=== PATIENT | male | born 1970 | race Caucasian/White ===

== ENCOUNTER 2019-05-19 17:09 | Emergency (ER) | payer SELFPAY ==
[~2019-05-19] VITALS: Ht 177.8 cm; Wt 99.8 kg
[~2019-05-19 17:09] MED LIST: ALPR.5T; ASP325T; CLPD75T; ENLP10T; EZET10TA5; MTP50T; OMG1KC; SIMV40TA2
[2019-05-19] MEDS ORDERED: fentaNYL INJECTION 100 MCG/2 ML AMP IVP STA (17:24)
[2019-05-19] MEDS ORDERED: ONDANSETRON 4 MG/2 ML (SDV) Z0FRAN IVP ONE (17:30)
[2019-05-19 17:40] LABS: BASOPHILS % (AUTO) 0 % (0-10); EOSINOPHILS # (AUTO) 0.2 10^3/uL (0.0-0.3); EOSINOPHILS % (AUTO) 2 % (0-10); HEMATOCRIT 40 % (40-54); HEMOGLOBIN 13.6 G/DL (13.3-17.7); LYMPHOCYTES # (AUTO) 2.6 X 10^3 (1.0-4.0); LYMPHOCYTES % (AUTO) 30 % (12-44); MEAN CORPUSCULAR HEMOGLOBIN 32 PG (25-34); MEAN CORPUSCULAR HGB CONC 34 G/DL (32-36); MEAN CORPUSCULAR VOLUME 93 FL (80-99); MEAN PLATELET VOLUME 11.2 FL (7.4-10.4); MONOCYTES # (AUTO) 0.8 X 10^3 (0.0-1.0); MONOCYTES % (AUTO) 9 % (0-12); NEUTROPHILS % (AUTO) 59 % (42-75); PLATELET COUNT 253 10^3/uL (130-400); RED CELL DISTRIBUTION WIDTH 12.9 % (10.0-14.5); WHITE BLOOD COUNT 8.6 10^3/uL (4.3-11.0)
--- NOTE | 2019-05-19 17:40 | NUR ---
TO CT PER CART C COLLAR IN PLACE.
--- NOTE | 2019-05-19 17:51 | NUR ---
PATIENT REPORTS THAT HE IS SUPPOSE TO BE ON MEDS,BUT HAS NOT TAKEN ANY FOR A YEAR.
[2019-05-19 17:56] LABS: ALANINE AMINOTRANSFERASE 25 U/L (0-55); ALKALINE PHOSPHATASE 66 U/L (40-136); BILIRUBIN,TOTAL 0.2 MG/DL (0.1-1.0); BUN/CREATININE RATIO 12; CARBON DIOXIDE 27 MMOL/L (21-32); CHLORIDE 105 MMOL/L (98-107); CREATININE SERUM 0.78 MG/DL (0.60-1.30); GFR ESTIMATED > 60; GLUCOSE 104 MG/DL (70-105); SODIUM 140 MMOL/L (135-145); TOTAL PROTEIN 7.1 GM/DL (6.4-8.2)
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
--- NOTE | 2019-05-19 18:12 | NUR ---
AMB TO BATHROOM
[2019-05-19 18:36] LABS: BILIRUBIN,URINE NEGATIVE (NEGATIVE); CLARITY,URINE CLEAR; COLOR,URINE YELLOW; GLUCOSE, URINE (UA) NEGATIVE (NEGATIVE); KETONES,URINE NEGATIVE (NEGATIVE); LEUKOCYTE ESTERASE ,URINE 1+ (NEGATIVE); NITRITE,URINE NEGATIVE (NEGATIVE); PH,URINE 5 (5-9); PROTEIN,URINE 1+ (NEGATIVE); UROBILINOGEN,URINE NORMAL (NORMAL)
[2019-05-19 18:37] LABS: BACTERIA,URINE FEW /HPF; RBC,URINE >100 /HPF; WBC,URINE 0-2 /HPF
[2019-05-19] MEDS ORDERED: NS IV 1000 ML 1,000 ML IV SCH (18:42)
[2019-05-19] MEDS ORDERED: IOHEXOL 350 MG/ML 100 ML (OMNIPAQUE 350) VIAL IV ONE (19:00)
[2019-05-19] MEDS ORDERED: NS 100 ML (IVPB) BAG IV ONE (19:00)
[2019-05-19] MEDS ORDERED: HOLD METFORMIN - RECEIVED CONTRAST 20 ML VIAL IV SCH (19:00)
[2019-05-19] MEDS ORDERED: CATHETER FLUSH 10 ML SYR IV PRN (19:00)
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
[2019-05-19] MEDS ORDERED: CYCL10TA9 PO (19:58)
[2019-05-19] MEDS ORDERED: ORPHENADRINE 60 MG/2 ML (NORFLEX) AMP IV ONE (20:00)
[2019-05-19 20:07] VITALS: BP 156/99
== END 2019-05-19 20:08 | disposition home or self-care (01) ==
LOC: EDUNIT# 17:09 → ER 17:11
DX: S00.83XA Contusion of other part of head, initial encounter (principal); S80.811A Abrasion, right lower leg, initial encounter; R31.9 Hematuria, unspecified; I10 Essential (primary) hypertension; E78.00 Pure hypercholesterolemia, unspecified; F17.210 Nicotine dependence, cigarettes, uncomplicated; R40.2142 Coma scale, eyes open, spontaneous, at arrival to emergency department; R40.2252 Coma scale, best verbal response, oriented, at arrival to emergency department; R40.2362 Coma scale, best motor response, obeys commands, at arrival to emergency department; Z95.1 Presence of aortocoronary bypass graft; V53.5XXA Driver of pick-up truck or van injured in collision with car, pick-up truck or van in traffic accident, initial encounter
CPT/HCPCS: 36415; 70450; 71045; 72125; 74177; 80053; 81000; 85025; 87088

== ENCOUNTER 2019-06-01 11:01 | Emergency (ER) | payer OTHER ==
[~2019-06-01] VITALS: Ht 177.8 cm; Wt 100.0 kg
[~2019-06-01 11:01] MED LIST changes: +CYCL10TA9 PO
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
[2019-06-01] MEDS ORDERED: KETOROLAC 30 MG/ML VIAL IM ONE (11:15)
[2019-06-01] MEDS ORDERED: ORPHENADRINE 60 MG/2 ML (NORFLEX) AMP IM ONE (11:15)
[2019-06-01] MEDS ORDERED: HYDROcodone/APAP 5 MG/325 MG (LORTAB) TAB PO ONE (11:15)
--- NOTE | 2019-06-01 11:37 | Diagnostic Imaging Report ---
Indication: Back injury with continued back pain. Time of exam 11:21 AM 3 views of the lumbar spine were obtained. Curvature and alignment is normal. Vertebral body heights are well maintained. No acute compression fracture is seen. There is mild degenerative disc disease at L5-S1 level. There is mild disc space narrowing as well as vacuum disc phenomena. Impression: Lower lumbar degenerative disc disease. No acute bony abnormality is detected. Dictated by: Dictated on workstation # [id number]
[2019-06-01] MEDS ORDERED: HYDR-4226 PO (11:54)
[2019-06-01] MEDS ORDERED: PRD20T PO (11:54)
[2019-06-01 12:00] VITALS: BP 134/100
== END 2019-06-01 12:00 | disposition home or self-care (01) ==
LOC: EDUNIT# 11:01 → ER 11:02
DX: M54.16 Radiculopathy, lumbar region (principal); I10 Essential (primary) hypertension; E78.00 Pure hypercholesterolemia, unspecified; Z95.1 Presence of aortocoronary bypass graft
CPT/HCPCS: 72100; 96372

== ENCOUNTER 2020-06-17 03:34 | Inpatient (IN) | payer SELFPAY ==
[~2020-06-17] VITALS: Ht 175 cm; Wt 110.0 kg
[2020-06-17] VITALS (13 sets, daily range): BP systolic 92–143; BP diastolic 42–102
[~2020-06-17 03:34] MED LIST changes: +HYDR-4226 PO; +PRD20T PO
[2020-06-17] MEDS ORDERED: NS IV 1000 ML 1,000 ML ONE ×2 (04:02→05:19)
[2020-06-17] MEDS ORDERED: NS IV 1000 ML 1,000 ML IV SCH ×3 (04:04→06:14)
[2020-06-17] MEDS ORDERED: meTOproloL SUCCINATE 50 MG (TOPROL XL) TAB PO SCH ×2 (04:15→09:00)
[2020-06-17] MEDS ORDERED: meTOprolol 5 MG/5 ML (LOPRESSOR) VIAL IV ONE (04:15)
[2020-06-17] MEDS ORDERED: TETANUS,DIPTH,PERTUSS P/F (BOOSTRIX) 0.5 ML VIAL IM ONE (04:15)
[2020-06-17] MEDS ORDERED: ASPIRIN 81 MG CHEW (CHILDREN'S ASA) PO ONE (04:15)
[2020-06-17 04:16] LABS: BASOPHILS # (AUTO) 0.1 10^3/uL (0.0-0.1); BASOPHILS % (AUTO) 1 % (0-10); EOSINOPHILS # (AUTO) 0.2 10^3/uL (0.0-0.3); EOSINOPHILS % (AUTO) 1 % (0-10); HEMATOCRIT 42 % (40-54); HEMOGLOBIN 14.5 g/dL (13.3-17.7); LYMPHOCYTES # (AUTO) 2.3 10^3/uL (1.0-4.0); LYMPHOCYTES % (AUTO) 19 % (12-44); MEAN CORPUSCULAR HEMOGLOBIN 32 pg (25-34); MEAN CORPUSCULAR HGB CONC 34 g/dL (32-36); MEAN CORPUSCULAR VOLUME 92 fL (80-99); MEAN PLATELET VOLUME 11.5 fL (9.0-12.2); MONOCYTES % (AUTO) 8 % (0-12); NEUTROPHILS # (AUTO) 8.6 10^3/uL (1.8-7.8); NEUTROPHILS % (AUTO) 70 % (42-75); PLATELET COUNT 328 10^3/uL (130-400); WHITE BLOOD COUNT 12.2 10^3/uL (4.3-11.0)
[2020-06-17 04:20] LABS: ALBUMIN 4.5 GM/DL (3.2-4.5); CHLORIDE 101 MMOL/L (98-107); POTASSIUM 4.1 MMOL/L (3.6-5.0); SODIUM 136 MMOL/L (135-145)
[2020-06-17 04:21] LABS: CALCIUM 9.2 MG/DL (8.5-10.1)
[2020-06-17 04:22] LABS: GLUCOSE 144 MG/DL (70-105)
[2020-06-17 04:23] LABS: CARBON DIOXIDE 22 MMOL/L (21-32)
[2020-06-17 04:24] LABS: BILIRUBIN,TOTAL 0.4 MG/DL (0.1-1.0)
[2020-06-17 04:26] LABS: ALKALINE PHOSPHATASE 76 U/L (40-136); CREATININE SERUM 1.06 MG/DL (0.60-1.30); GFR ESTIMATED > 60
[2020-06-17 04:27] LABS: BUN/CREATININE RATIO 18
[2020-06-17 04:29] LABS: ALANINE AMINOTRANSFERASE 36 U/L (0-55); MAGNESIUM 1.9 MG/DL (1.6-2.4)
--- NOTE | 2020-06-17 04:33 | ED Chest Pain ---
General Chief Complaint: Chest Pain Stated Complaint: CP,FALL,CUT ON HEAD Nursing Triage Note: C/O FALL APPROX. 0300 1CM LACERATION ABOVE LEFT EYE. CHEST PAIN. Nursing Sepsis Screen: No Definite Risk Source: patient Exam Limitations: no limitations History of Present Illness Date Seen by Provider: Jun 17, 2020 Time Seen by Provider: 03:39 Initial Comments This 49-year-old man presents to the emergency room with complaints of chest pain and shortness of breath 1 week and a fall this evening resulting in laceration to his forehead. He does not recall the fall or how it happened. He believes he was walking out to his truck at the time. He did ice it he recently alcohol use but he has used methamphetamines in the last couple of days. He takes a full aspirin daily. He is warm to the touch and appears flushed but is afebrile when measured with a thermometer. He has history of CABG. His CABG was in 2005. He had a cardiac catheter here reviewed 2009 showing patent grafts. He has not followed with a customer relationship specialist since being incarcerated. He w as released in 2016. He denies any known exposures to COVID-19. He is tachycardic and EKG demonstrates questionable STEMI. Allergies and Home Medications Allergies Coded Allergies: No Known Drug Allergies (Verified Allergy, Unknown, 03/23/08) Home Medications Cyclobenzaprine HCl 10 Mg Tablet, 10 MG PO Q8H PRN for SPASMS Prescribed by: TOYIN SPANN on 05/19/191957 Hydrocodone/Acetaminophen 1 Each Tablet, 1 TAB PO Q4-6HR Prescribed by: EBONY BARNARD on 06/01/19 115 Prednisone 20 Mg Tab, 40 MG PO DAILY Prescribed by: EBONY BARNARD on 06/01/19 1154 Patient Home Medication List Home Medication List Reviewed: Yes Review of Systems Review of Systems Constitutional: see HPI EENTM: No Symptoms Reported Respiratory: No Symptoms Reported Cardiovascular: See HPI Gastrointestinal: No Symptoms Reported Genitourinary: No Symptoms Reported Musculoskeletal: see HPI Skin: see HPI Psychiatric/Neurological: No Symptoms Reported Endocrine: No Symptoms Reported Hematologic/Lymphatic: No Symptoms Reported Past Lmfhuwh-Hnuult-Ugtrah Hx Past Med/Social Hx: Reviewed Nursing Past Med/Soc Hx Patient Social History Alcohol Use: Denies Use Recreational Drug Use: Yes Drug of Choice: THC, METH Smoking Status: Current Everyday Smoker Type Used: Cigars Recent Foreign Travel: No Contact w/Someone Who Travel: No Recent Infectious Disease Expo: No Recent Hopitalizations: No Immunizations Up To Date Tetanus Booster (TDap): Unknown Past Medical History Surgeries: Yes (BYPASS, KNEE WAS CUT OPEN BY CHAINSAW-RAPAIRED) CABG Respiratory: No Cardiac: Yes Coronary Artery Disease, High Cholesterol, Hypertension Neurological: No Reproductive Disorders: No Genitourinary: No Gastrointestinal: No Musculoskeletal: No Endocrine: No HEENT: No Cancer: No Psychosocial: Yes Integumentary: No Blood Disorders: No Family Medical History No Pertinent Family Hx Physical Exam Vital Signs Vital Signs - First Documented 06/17/20 03:45 Temp 36.1 Pulse 126 Resp 22 B/P (MAP) 119/89 (99) Pulse Ox 96 O2 Delivery Room Air Capillary Refill : Less Than 3 Seconds Height, Weight, BMI Height: 5'10.00" Weight: 220lbs. oz. 99.295160bq; 33.00 BMI Method:Stated General Appearance: No Apparent Distress, WD/WN HEENT: PERRL/EOMI, Pharynx Normal, Other (1 cm laceration on the left forehead. Ecchymosis and swelling in the left periorbital region) Neck: Normal Inspection, Non Tender Respiratory: Chest Non Tender, Lungs Clear, Normal Breath Sounds, No Accessory Muscle Use, Other (tachypnea) Cardiovascular: No Edema, No Murmur, Tachycardia Gastrointestinal: Normal Bowel Sounds, Non Tender, Soft, Other (slight bruise on the right abdomen without significant tenderness) Extremity: Normal Inspection, Non Tender, No Pedal Edema Neurologic/Psychiatric: Alert, Oriented x3, No Motor/Sensory Deficits, 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, pharmacy buyer II-XII Norm as Tested, Other (oriented but seems to have lapse of memory surrounding the fall and head injury) Skin: Normal Color, Warm/Dry, Ecchymosis Progress/Results/Core Measures Results/Orders Lab Results Laboratory Tests Test 06/17/20 04:04 06/17/20 04:08 Range/Units White Blood Count 12.2 H 4.3-11.0 10^3/uL Red Blood Count 4.58 4.30-5.52 10^6/uL Hemoglobin 14.5 13.3-17.7 g/dL Hematocrit 42 40-54 % Mean Corpuscular Volume 92 80-99 fL Mean Corpuscular Hemoglobin 32 25-34 pg Mean Corpuscular Hemoglobin Concent 34 32-36 g/dL Red Cell Distribution Width 12.3 10.0-14.5 % Platelet Count 328 130-400 10^3/uL Mean Platelet Volume 11.5 9.0-12.2 fL Immature Granulocyte % (Auto) 1 % Neutrophils (%) (Auto) 70 42-75 % Lymphocytes (%) (Auto) 19 12-44 % Monocytes (%) (Auto) 8 0-12 % Eosinophils (%) (Auto) 1 0-10 % Basophils (%) (Auto) 1 0-10 % Neutrophils # (Auto) 8.6 H 1.8-7.8 10^3/uL Lymphocytes # (Auto) 2.3 1.0-4.0 10^3/uL Monocytes # (Auto) 1.0 0.0-1.0 10^3/uL Eosinophils # (Auto) 0.2 0.0-0.3 10^3/uL Basophils # (Auto) 0.1 0.0-0.1 10^3/uL Immature Granulocyte # (Auto) 0.1 0.0-0.1 10^3/uL Prothrombin Time 12.9 12.2-14.7 SEC INR Comment 0.9 0.8-1.4 Activated Partial Thromboplast Time 29 24-35 SEC D-Dimer 0.27 0.00-0.49 UG/ML Sodium Level 136 135-145 MMOL/L Potassium Level 4.1 3.6-5.0 MMOL/L Chloride Level 101 98-107 MMOL/L Carbon Dioxide Level 22 21-32 MMOL/L Anion Gap 13 5-14 MMOL/L Blood Urea Nitrogen 19 H 7-18 MG/DL Creatinine 1.06 0.60-1.30 MG/DL Estimat Glomerular Filtration Rate > 60 BUN/Creatinine Ratio 18 Glucose Level 144 H 70-105 MG/DL Calcium Level 9.2 8.5-10.1 MG/DL Corrected Calcium 8.8 8.5-10.1 MG/DL Magnesium Level 1.9 1.6-2.4 MG/DL Total Bilirubin 0.4 0.1-1.0 MG/DL Aspartate Amino Transf (AST/SGOT) 27 5-34 U/L Alanine Aminotransferase (ALT/SGPT) 36 0-55 U/L Alkaline Phosphatase 76 40-136 U/L Lactate Dehydrogenase 225 H 125-220 U/L Myoglobin 67.9 10.0-92.0 NG/ML Troponin I 0.423 *H <0.028 NG/ML C-Reactive Protein High Sensitivity 1.11 H 0.00-0.50 MG/DL Total Protein 8.0 6.4-8.2 GM/DL Albumin 4.5 3.2-4.5 GM/DL Procalcitonin 0.05 <0.10 NG/ML Coronavirus 2019 ([facility]AN) Negative Negative Micro Results Microbiology 06/17/20 Influenza Types A,B Antigen (SABA) - Final, Complete My Orders Orders - BHUMIKA FREIRE MD Cbc With Automated Diff (06/17/20 04:00) Magnesium (06/17/20 04:00) Chest 1 View, Ap/Pa Only (06/17/20 04:00) Ekg Tracing (06/17/20 04:00) Comprehensive Metabolic Panel (06/17/20 04:00) Myoglobin Serum (06/17/20 04:00) Protime With Inr (06/17/20 04:00) Partial Thromboplastin Time (06/17/20 04:00) O2 (06/17/20 04:00) Monitor-Rhythm Ecg Trace Only (06/17/20 04:00) Lipid Panel (06/18/20 06:00) Ed Iv/Invasive Line Start (06/17/20 04:00) Troponin I (06/17/20 04:00) Procalcitonin (Pct) (06/17/20 04:00) Hs C Reactive Protein (06/17/20 04:00) LDH (06/17/20 04:00) Covid 19 Inhouse Test (06/17/20 04:00) Ct Head/Face/Cervical Wo (06/17/20 04:02) Dipht,Pertuss(Acell),Tet Adult (Boostrix (06/17/20 04:15) Influenza A And B Antigens (06/17/20 04:04) Ns Iv 1000 Ml (Sodium Chloride 0.9%) (06/17/20 04:04) Drug Screen Stat (Urine) (06/17/20 04:04) Ns Iv 1000 Ml (Sodium Chloride 0.9%) (06/17/20 04:02) Metoprolol Tartrate Injection (Lopressor (06/17/20 04:15) Aspirin Chewable Tablet (Baby Aspirin Ch (06/17/20 04:15) Metoprolol Succinate (Xl) Tab (Toprol Xl (06/17/20 04:15) Fibrin Degradation Products (06/17/20 04:04) Medications Given in ED Current Medications Medications Dose Ordered Sig/Jordan Route Start Time Stop Time Status Last Admin Dose Admin Aspirin 324 mg ONCE ONCE PO 06/17/20 04:15 06/17/20 04:16 DC 06/17/20 04:15 324 MG Diphtheria/ Tetanus/Acell Pertussis 0.5 ml ONCE ONCE IM 06/17/20 04:15 06/17/20 04:16 DC 06/17/20 04:09 0.5 ML Metoprolol Tartrate 5 mg ONCE ONCE IV 06/17/20 04:15 06/17/20 04:16 DC 06/17/20 04:16 5 MG Vital Signs/I&O 06/17/20 06/17/20 03:45 03:45 Temp 36.1 Pulse 126 Resp 22 B/P (MAP) 119/89 (99) Pulse Ox 96 O2 Delivery Room Air Room Air Blood Pressure Mean: 99 Progress Progress Note : Time: 05:24 Progress Note Patient was diagnosed with NSTEMI. ST elevation was only present in lead 3. Troponin was elevated. Patient was treated with aspirin, Lopressor 5 mg IV, Toprol-XL 50 mg by mouth, and a liter of IV fluid. Rapid COVID screen was negative. Patient had a positive urine drug screen. Boostrix tetanus immunization was administered. Wound on the forehead was not repaired in favor of other priorities such as CT imaging and cardiac angiography. Patient was taken directly to [facility] with Dr. Forrest. Initial ECG Impression Date: Jun 17, 2020 Initial ECG Impression Time: 03:49 Initial ECG Rate: 122 Initial ECG Rhythm: S.Tach Comment Sinus tachycardia with ST elevation in lead 3. ST depression in multiple leads. Diagnostic Imaging Diagonstic Imaging: CT Plain Films/CT/US/NM/MRI: facial bones, c-spine, head Comments CT of the head, cervical spine, and face viewed by me and [facility] report reviewed. No acute fractures or intracranial injuries identified. Diagonstic Imaging: Xray Plain Films/CT/US/NM/MRI: chest Comments Chest x-ray viewed by me. Report not yet available. No acute abnormalities appreciated. Departure Communication (Admissions) Time/Spoke to Admitting Phy: 04:00 Dr. Forrest Impression Primary Impression: Non-ST elevated myocardial infarction Additional Impressions: Polysubstance abuse Fall on same level Qualified Codes: W18.30XA - Fall on same level, unspecified, initial encounter Laceration of forehead Qualified Codes: S01.81XA - Laceration without foreign body of other part of head, initial encounter Disposition: ADMITTED INPATIENT Condition: Stable Admissions Decision to Admit Reason: Admit from ER (General) Decision to Admit/Date: Jun 17, 2020 Time/Decision to Admit Time: 04:00 Departure-Patient Inst. Referrals: NO,LOCAL PHYSICIAN (PCP/Family) Primary Care Physician BHUMIKA FREIRE MD Jun 17, 2020 04:33
[2020-06-17 04:37] LABS: INR 0.9 (0.8-1.4); PROTHROMBIN TIME PATIENT 12.9 SEC (12.2-14.7)
[2020-06-17 04:38] LABS: FIBRIN DEGRADATION PRODUCTS 0.27 UG/ML (0.00-0.49)
[2020-06-17] MEDS ORDERED: LIDOCAINE 1% INJ 20 ML 20 ML VIAL ONE (04:43)
[2020-06-17] MEDS ORDERED: HEParin (CATH LAB) 2,000 ML IV ONE (04:44)
[2020-06-17] MEDS ORDERED: NITRO DRIP 25000 MCG/D5W 250 ML IV ONE (04:44)
[2020-06-17] MEDS ORDERED: MIDAZOLAM 5 MG/5 ML (VERSED) VIAL ONE (04:44)
[2020-06-17] MEDS ORDERED: fentaNYL INJECTION 100 MCG/2 ML AMP ONE ×2 (04:44→09:48)
[2020-06-17 05:20] LABS: AMPHETAMINE SCREEN, URINE POSITIVE (NEGATIVE); BARBITURATE SCREEN URINE NEGATIVE (NEGATIVE); BENZODIAZEPINES SCREEN URINE NEGATIVE (NEGATIVE); CANNABINOID SCREEN, URINE POSITIVE (NEGATIVE); COCAINE SCREEN URINE NEGATIVE (NEGATIVE); METHADONE STAT NEGATIVE (NEGATIVE); METHAMPHETAMINE SCREEN URINE S POSITIVE (NEGATIVE); OPIATE SCREEN URINE NEGATIVE (NEGATIVE); OXYCODONE STAT NEGATIVE (NEGATIVE); PROPOXYPHENE STAT NEGATIVE (NEGATIVE); TRICYCLIC ANTIDEPRESSANTS SCRE NEGATIVE (NEGATIVE)
[2020-06-17] MEDS ORDERED: HEParin 1000 UNIT/ML (10ML VIAL) FOR BOLUS ONE (05:39)
[2020-06-17] MEDS ORDERED: ASPIRIN 81 MG CHEW (CHILDREN'S ASA) ONE (05:40)
[2020-06-17] MEDS ORDERED: CLOPIDOGREL 300 MG (PLAVIX) TABLET PO ONE (05:40)
[2020-06-17] MEDS ORDERED: EPTIFIBATIDE BOLUS 20 ML IV ONE (05:40)
[2020-06-17] MEDS ORDERED: PATIENT MAY USE OWN MEDS, ALL PO SCH (06:15)
--- NOTE | 2020-06-17 06:24 | Diagnostic Imaging Report ---
Clinical indication: Patient status post fall with laceration to forehead. Exam: Axial Head CT without IV contrast with coronal and sagittal reformatted images. Axial Maxillofacial CT scan without IV contrast with sagittal and coronal reformations. Axial CT scan of the cervical spine with sagittal and coronal reformations. Auto Exposure Controls were utilized during the CT exam to meet ALARA standards for radiation dose reduction. Comparison: CT scan of the head and cervical spine without contrast dated 05/19/2019. Findings: Head CT and maxillofacial CT: There is no evidence of acute cerebral infarct, intracranial hemorrhage, or gross mass effect. The brain parenchymal volume appears appropriate for patient's age. There is normal goldberg-white matter distinction. There is no significant midline shift or herniation. There is no evidence of hydrocephalus. The basal cisterns are unremarkable. There is extracranial soft tissue swelling in the left frontal/forehead and left periorbital region. There is no acute skull fracture seen. Likely chronic bony deformity/fractures involving the left nasal bone region. Otherwise, the, extracranial soft tissue, and orbits are unremarkable. There is a small mucous retention cyst involving left maxillary sinus and minimal mucosal thickening involving the ethmoid sinus. The orbits and globes are intact. There is no retrobulbar hematoma. All the extracranial soft tissue swelling is preseptal. Temporal bones show no significant abnormality. Cervical spine: There is limited visualization of the lower cervical spine due to patient body habitus. There is no acute cervical spine fracture or dislocation. There is mild hypertrophic spurs anteriorly involving the cervical spine. There is no significant central spinal canal or neural foramen narrowing. There is no significant paraspinal soft tissue abnormality. Visualized upper lung packer show no acute finding. IMPRESSION: 1: There is no evidence of acute intracranial process or intracranial hemorrhage. 2: There is a small area of extracranial soft tissue swelling involving left frontal region and left periorbital region. There is no acute skull fracture seen. 3: Likely old chronic fractures of the left nasal bone region. 4.: There is no acute cervical spine fracture or dislocation. I agree with [facility] report. Dictated by: Dictated on workstation # [id number]
--- NOTE | 2020-06-17 06:31 | Cardiology History & Physical ---
HPI-Cardiology Cardiology H&P Date of Admission 06/17/20 Primary Care Physician Shereen,Local Physician Attending Physician Kye Forrest MD, MA FACP [facility] Consulting Physician ESE CC: Chest pain, shortness of breath, fall HPI: 49-year-old man presents to the emergency room with complaints of chest pain and shortness of breath 1 week. CP continuous, but worse with exertion and improved with rest, midsternal and L parasternal, nonradiating, associated with shortness of breath, mild to moderately severe in intensity. He took a fall this evening resulting in laceration to his forehead. He does not recall the fall or how it happened. He believes he was walking out to his truck at the time. He has h/o recent alcohol and methamphetamine use, but does not describe it in any more detail. Review of Systems-Cardiology Review of Systems Constitutional: malaise; No weight loss, No weight gain Eyes: No vision change Ears/Nose/Throat: No epistaxis, No nasal drainage, No recent hearing loss Respiratory: As described under HPI Cardiovascular: As described under HPI Gastrointestinal: No diarrhea, No nausea, No vomiting Genitourinary: No dysuria, No hematuria Musculoskeletal: No back pain, No joint pain Skin: No rash, No ulcerations Psychiatric/Neurological: No seizure, No focal weakness, No syncope Hematologic: No bleeding abnormalities VJM-Vcplaq-Hubcha Hx Patient Social History Alcohol Use: Denies Use Recreational Drug Use: Yes Drug of Choice: THC, METH Smoking Status: Current Everyday Smoker Type Used: Cigars, Cigarettes Recent Foreign Travel: No Recent Infectious Disease Expo: No Hospitalization with Isolation: Denies Immunizations Up To Date Tetanus Booster (TDap): Unknown Past Medical History PMH As described under Assessment. Family Medical History Family Medical History: Does not report fam h/o early CAD Allergies and Home Medications Allergies Coded Allergies: No Known Drug Allergies (Verified , 03/23/08) Home Medications Cyclobenzaprine HCl 10 Mg Tablet, 10 MG PO Q8H PRN for SPASMS Prescribed by: TOYIN SPANN on 05/19/191957 Hydrocodone/Acetaminophen 1 Each Tablet, 1 TAB PO Q4-6HR Prescribed by: EBONY BARNARD on 06/01/19 115 Prednisone 20 Mg Tab, 40 MG PO DAILY Prescribed by: EBONY BARNARD on 06/01/19 1154 Patient Home Medication List Home Medication List Reviewed: Yes Physical Exam-Cardiology Physical Exam Vital Signs/I&O 06/17/20 06/17/20 06/17/20 06/17/20 03:45 03:45 04:55 06:18 Temp 36.1 36.1 35.8 Pulse 126 110 104 Resp 22 18 21 B/P (MAP) 119/89 (99) 157/117 (99) 143/94 (110) Pulse Ox 96 98 94 O2 Delivery Room Air Room Air Room Air Room Air Capillary Refill : Less Than 3 Seconds Constitutional: AAO x 3, well-developed, well-nourished HEENT: EOMI, hearing is well preserved Neck: carotid pulses are 2 + bilaterally Respiratory: No accessory muscle use; other (fair to good bilateral air entry) Cardiovascular: regular rate-rhythm, S1 and S2, systolic murmur (soft MARY at card base) Gastrointestinal: No tender; soft; No guarding, No rebound; audible bowel sounds Extremities: No clubbing, No cyanosis, No significant edema Neurologic/Psychiatric: oriented x 3, other (moves all limbs equally) Skin: No rash on exposed areas, No ulcerations on exposed areas; other (bruising around L eye; 1 cm laceration on forehead) Data Review Labs Laboratory Tests 06/17/20 04:04: White Blood Count 12.2H, Red Blood Count 4.58, Hemoglobin 14.5, Hematocrit 42, Mean Corpuscular Volume 92, Mean Corpuscular Hemoglobin 32, Mean Corpuscular Hemoglobin Concent 34, Red Cell Distribution Width 12.3, Platelet Count 328, Mean Platelet Volume 11.5, Immature Granulocyte % (Auto) 1, Neutrophils (%) (Auto) 70, Lymphocytes (%) (Auto) 19, Monocytes (%) (Auto) 8, Eosinophils (%) (Auto) 1, Basophils (%) (Auto) 1, Neutrophils # (Auto) 8.6H, Lymphocytes # (Auto) 2.3, Monocytes # (Auto) 1.0, Eosinophils # (Auto) 0.2, Basophils # (Auto) 0.1, Immature Granulocyte # (Auto) 0.1, Prothrombin Time 12.9, INR Comment 0.9, Activated Partial Thromboplast Time 29, D-Dimer 0.27, Sodium Level 136, Potassium Level 4.1, Chloride Level 101, Carbon Dioxide Level 22, Anion Gap 13, Blood Urea Nitrogen 19H, Creatinine 1.06, Estimat Glomerular Filtration Rate > 60, BUN/Creatinine Ratio 18, Glucose Level 144H, Calcium Level 9.2, Corrected Calcium 8.8, Magnesium Level 1.9, Total Bilirubin 0.4, Aspartate Amino Transf (AST/SGOT) 27, Alanine Aminotransferase (ALT/SGPT) 36, Alkaline Phosphatase 76, Lactate Dehydrogenase 225H, Myoglobin 67.9, Troponin I 0.423*H, C-Reactive Protein High Sensitivity 1.11H, Total Protein 8.0, Albumin 4.5, Procalcitonin 0.05 06/17/20 04:08: Coronavirus 2019 ([facility]AN) Negative 06/17/20 04:55: Urine Opiates Screen NEGATIVE, Urine Oxycodone Screen NEGATIVE, Urine Methadone Screen NEGATIVE, Urine Propoxyphene Screen NEGATIVE, Urine Barbiturates Screen NEGATIVE, Ur Tricyclic Antidepressants Screen NEGATIVE, Urine Phencyclidine Screen NEGATIVE, Urine Amphetamines Screen POSITIVEH, Urine Methamphetamines Screen POSITIVEH, Urine Benzodiazepines Screen NEGATIVE, Urine Cocaine Screen NEGATIVE, Urine Cannabinoids Screen POSITIVEH Microbiology 06/17/20 Influenza Types A,B Antigen (SABA) - Final, Complete Laboratory Tests 06/17/20 04:04 A/P-Cardiology Assessment/Admission Diagnosis Ac NSTEMI, treated with PCI (see below) CAD. H/o CABG. Card cath of 06/17/20: Occluded LMCA, patent MARIN to LAD, patent SVG to LCXOM, 90% prox stenosis of a dominant RCA treated with Xience Montse 2.5 x 18 mm stent on 06/17/20, LVEDP 21 mmHg, LVEF approx 50%, mild inf wall hypokinesis Chronic tobacco use: smokes 3/4 ppd H/o methamphetamine use Fall on 06/17/20, etiology unclear. Laceration to L forehead. No evidence of intracranial bleed Admission Status: Inpatient Order (span 2 midnights) Reason for Inpatient Admission: Ac DE Discussion and Recomendations * BB, DAMION-inhib, DAPT, statin * Hospitalist and Pulm consult for shortness of breath, drug use, fall-related trauma. I did discuss the issue fall with the ER physician prior to proceeding with the cath. The ER physician reported that there was no evidence of intracranial bleed * Advised to quit smoking and refrain from drug use * Monitor labs Clinical Quality Measures AMI/AHF: ASA po Prior to arrival: Yes DVT/VTE Risk/Contraindication: Risk Factor Score Per Nursin RFS Level Per Nursing on Admit: 4+=Very High KYE FORREST MD FACP [facility] Jun 17, 2020 06:31
[2020-06-17] MEDS ORDERED: ACETAMINOPHEN 325 MG TABLET ONE (06:35)
[2020-06-17] MEDS: ACETAMINOPHEN 325 MG TABLET PO PRN ×2 (06:42→13:05)
[2020-06-17] MEDS ORDERED: FLU QUADRIvalent (3YOA+) 60 mcg/0.5 ml 2020-21 (AFLURIA) IM ONE (07:00)
[2020-06-17 07:05] LABS: CLARITY,URINE CLEAR; COLOR,URINE BROWN; GLUCOSE, URINE (UA) NEGATIVE (NEGATIVE); KETONES,URINE NEGATIVE (NEGATIVE); LEUKOCYTE ESTERASE ,URINE NEGATIVE (NEGATIVE); NITRITE,URINE NEGATIVE (NEGATIVE); PH,URINE 6.5 (5-9); PROTEIN,URINE 2+ (NEGATIVE)
[2020-06-17 07:16] LABS: BACTERIA,URINE FEW /HPF; RBC,URINE TNTC /HPF; SQUAMOUS EPITHELIAL CELL,UR 0-2 /HPF
--- NOTE | 2020-06-17 08:10 | Diagnostic Imaging Report ---
INDICATION: Chest pain COMPARISON: 05/19/2019 TECHNIQUE: Single radiograph of the chest dated 06/17/2020 FINDINGS: Postsurgical changes of a CABG. The cardiac silhouette is upper limits of normal in size. No significant pulmonary vascular congestion. The lungs are clear focal pulmonary opacity. No pleural effusion. No pneumothorax. No acute osseous abnormality. IMPRESSION: Stable examination without acute cardiopulmonary abnormality. Dictated by: Dictated on workstation # [id number]
[2020-06-17] MEDS ORDERED: ASPIRIN 81 MG CHEW (CHILDREN'S ASA) PO SCH (09:00)
[2020-06-17] MEDS ORDERED: CLOPIDOGREL 75 MG (PLAVIX) TABLET PO SCH (09:00)
[2020-06-17] MEDS ORDERED: lisINopril 5 MG (PRINIVIL) TABLET PO SCH (09:00)
--- NOTE | 2020-06-17 09:14 | CARDIAC CATHETERIZATION ---
DATE OF SERVICE: 06/17/2020 CARDIAC CATHETERIZATION AND CORONARY INTERVENTION REPORT The patient is a 49-year-old man who presented with chest pain and shortness of breath. Troponin was mildly elevated. Electrocardiogram was indicative of acute non-ST elevation myocardial infarction. Symptoms were continuing. Due to the unstable coronary syndrome, urgent cardiac catheterization was carried out after he consented to proceed with cardiac catheterization and possible ad hoc coronary intervention. DESCRIPTION OF PROCEDURE: He was brought to the cardiac catheterization laboratory. Right groin was prepared and draped in the usual sterile fashion. Lidocaine 1% was used for local anesthesia. Modified Seldinger technique was used to advance a 6-Japanese sheath in right femoral artery. A 6-Japanese JL4 catheter was used for left coronary angiography. A 6-Japanese JR4 catheter was used for right coronary angiography, coronary angiography of the saphenous vein graft to left circumflex and angiography of the left internal mammary artery graft to the left anterior descending. A 6-Japanese pigtail catheter was used for left heart catheterization and left ventricular angiography. PERCUTANEOUS INTERVENTION TO THE RIGHT CORONARY ARTERY: Following completion of the diagnostic procedure, we carried out percutaneous intervention to the right coronary where the patient was exhibiting 90% proximal stenosis. We used the 6-Japanese JR4 guide catheter with side holes. Right coronary artery was engaged. We advanced a BMW wire across the lesion. We carried out balloon angioplasty with Emerge 2.0 x 20 mm balloon. The balloon was removed, and we then stented the lesion with Xience Montse 2.5 x 18 mm stent and that was postdilated with NC Quantum 2.5 x 20 mm balloon. Subsequent angiography revealed no significant residual stenosis at the previous site of 90% stenosis. Flow throughout the vessel is normal. HEMODYNAMICS: Left ventricular end-diastolic pressure following coronary angiography was 21 mmHg. There was no significant pressure gradient on pullback across the aortic valve. Ascending aortic pressure was 113/74 with a mean of 91 mmHg. CORONARY ANGIOGRAPHY: Left main coronary artery is occluded. There is a patent left internal mammary artery graft to the left anterior descending. There is a patent aortocoronary graft to an obtuse marginal system of the left circumflex. Right coronary artery is dominant and had 90% proximal stenosis that was stented with Alpine Xience 2.5 x 18 mm stent. The rest of the right coronary artery has mild to moderate plaque. LEFT VENTRICULAR ANGIOGRAPHY: Left ventricular angiography was carried out in the right anterior oblique projection. Left ventricular systolic function appears to be at the lower limit of normal. There is mild hypokinesis of the inferior wall. Left ventricular ejection fraction approximately 50%. CONCLUSIONS: 1. Coronary artery disease consisting of occluded left main coronary and severe proximal stenosis of the right coronary. There is a patent left internal mammary artery graft to the left anterior descending. There is a patent aortocoronary graft to left circumflex obtuse marginal system. The right coronary artery was stented today in its proximal portion with a Xience Montse 2.5 x 18 mm stent. The mid and distal right coronary artery has mild to moderate plaque. 2. Elevated left ventricular end-diastolic pressure (21 mmHg). 3. Global left ventricular systolic function is at the lower limit of normal. There is mild hypokinesis of the inferior wall. Left ventricular ejection fraction is approximately 50%. DISCUSSION AND RECOMMENDATIONS: We advised him to refrain from smoking cigarettes. Dual antiplatelet therapy has been initiated. Statin therapy has been initiated. Beta ro and DAMION inhibitors will be given as tolerated by blood pressure. Job ID: [id number] DocumentID: [id number] Dictated Date: 06/17/2020 06:55:23 Irrigator Valve Pipe Date: 06/17/2020 09:14:03 Dictated By: JAYLEEN SHELLEY MD, MA, FACP, FACC,
[2020-06-17] MEDS ORDERED: ATROPINE INJ 0.4 MG/ML SDV ONE (09:49)
[2020-06-17] MEDS ORDERED: ATROPINE INJECTION 1 MG/10 ML SYR (ABBOTT) ONE (09:49)
[2020-06-17 11:47] LABS: BILIRUBIN,URINE 1+ (NEGATIVE)
--- NOTE | 2020-06-17 14:10 | NUR ---
UPON ENTERING ROOM, RN NOTED PT LYING ON SIDE. RN REQUESTED PT TO LIE BACK FLAT ON BACK, PT REFUSED. PT WAS EDUCATED ON RISK OF BLEEDING DUE TO THE CURRENT POSITION. PT BECAME ANGRY AND STATED "IF I CAN'T LIE ON MY BACK I WILL LEAVE". NO NOTED BLEEDING OR SWELLING AT THIS TIME,RN WILL CONTINUE TO MONITOR SITE WITH PATIENT LYING ON SIDE.
--- NOTE | 2020-06-17 16:01 | NUR ---
Pt is Rastafarian. Proposal Manager Writer spoke to him by phone and will wait for test results before calling blood bank technician. He states he is feeling better.
--- NOTE | 2020-06-17 16:25 | NUR ---
PT EDUCATED ON NEW MEDICATIONS ORDERED AND RISK OF LEAVING AMA. PT WHEELED TO HOSPITAL ENTRANCE VIA WHEELCHAIR, WHERE HE WAS MET BY HIS AND HE THEN DROVE OFF DRIVING PERSONAL VEHICLE. Addendum: 06/17/20 at 1708 by HAROON CORDON RN PT WAS EDUCATED ON PLAVIX, AND ASPIRIN. RN EXPLAINED THE IMPORTANCE OF TAKING BOTH MEDICATIONS EVERYDAY TO PREVENT THE STENTS FROM COLLAPSING. PT VERBALIZED UNDERSTANDING, PRESCRIPTIONS CALLED IN TO LOCAL [facility] PER PT REQUEST. DR SHELLEY NOTICED.
== END 2020-06-17 16:28 | disposition left against medical advice (07) | DRG 247 ==
LOC: EDUNIT# 03:34 → ER 03:38 → CATH 04:18 → ICU 06:13
PROVIDERS: ADMIT Internal Medicine Cardiovascular Disease; ATTEND Internal Medicine Cardiovascular Disease
PROC: 027034Z Dilation of Coronary Artery, One Artery with Drug-eluting Intraluminal Device, Percutaneous Approach (ICD-10-PCS; principal; 2020-06-17)
PROC: 4A023N7 Measurement of Cardiac Sampling and Pressure, Left Heart, Percutaneous Approach (ICD-10-PCS; 2020-06-17)
PROC: B2111ZZ Fluoroscopy of Multiple Coronary Arteries using Low Osmolar Contrast (ICD-10-PCS; 2020-06-17)
PROC: B2151ZZ Fluoroscopy of Left Heart using Low Osmolar Contrast (ICD-10-PCS; 2020-06-17)
DX: I21.4 Non-ST elevation (NSTEMI) myocardial infarction (principal); F19.10 Other psychoactive substance abuse, uncomplicated; W18.30XA Fall on same level, unspecified, initial encounter; S01.81XA Laceration without foreign body of other part of head, initial encounter; F17.210 Nicotine dependence, cigarettes, uncomplicated; I25.10 Atherosclerotic heart disease of native coronary artery without angina pectoris; Z95.1 Presence of aortocoronary bypass graft
CPT/HCPCS: 36415; 70450; 70486; 71045; 72125; 80053; 80306; 80320; 81000; 83605; 83615; 83735; 83874; 84145; 84484; 85025; 85379; 85610; 85730; 86141; 87040; 87081; 87088; 87635; 87804; 90715; 93005; 93041; 93459

== ENCOUNTER 2022-12-06 17:33 | Observation (INO) | payer SELFPAY ==
[~2022-12-06] VITALS: Ht 175.2 cm; Wt 117.0 kg
[~2022-12-06 17:33] MED LIST changes: +CYCL10TA25 PO; -CYCL10TA9 PO
--- NOTE | 2022-12-06 17:54 | ED Chest Pain ---
General Chief Complaint: Chest Pain Stated Complaint: CHEST PAIN Nursing Triage Note: PT AMB TO RM 6 WITH CC OF CHEST PAIN X 1 MONTH. 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 PT STATES HAS BEEN OUT OF NITRO X2DAYS AND "THIS HAPPENS WHEN HE IS OUT." PT REPORTS PAIN INCREASES WHEN HE WALKS. PT STATES HAS DOUBLE BYPASS AND STENTS PLACED. Source: patient Exam Limitations: no limitations History of Present Illness Date Seen by Provider: Dec 06, 2022 Time Seen by Provider: 17:49 Initial Comments Patient is a 52-year-old male with a history of coronary artery disease, CABG, cardiac stents, dyslipidemia, who presents ED with chest pain. Patient had chest pain about 1 hour ago when he went to the clinic to get refill of his medication. States he has been having intermittent chest pressure over the past month. Pain occurs with exertion gets relief when he sits down. Typically takes a nitro with improvement. States he has been out of his nitro for the past 2 days. He reports that he takes Plavix, Toprol, simvastatin, nitrates. Last cardiac event was 2 years ago. Patient has seen Dr. Caruso and Dr. Giles. Patient has not associate shortness of breath with the chest pain. No cough, fever, vomiting, diarrhea, numbness and tingling, headache, dizziness, visual changes, abdominal pain. Patient rates current pain 0 out of 10. Patient had a cardiac cath in 2021 that showed occluded left main coronary and severe proximal stenosis the right coronary. Patent left internal mammary artery graft to the left anterior descending. The right coronary artery was stented in its proximal portion with a Xience Montse stent. The mid and distal right coronary artery has mild to moderate plaque. Ejection fraction 50%. Allergies and Home Medications Allergies Coded Allergies: No Known Drug Allergies (Verified , 03/23/08) Patient Home Medication List Home Medication List Reviewed: Yes Cyclobenzaprine HCl (Cyclobenzaprine HCl) 10 Mg Tablet, 10 MG PO Q8H PRN for SPASMS Prescribed by: TOYIN SPANN on 05/19/191957 Hydrocodone/Acetaminophen (Hydrocodone/Acetaminophen 5 MG/325 MG TAB) 1 Each Tablet, 1 TAB PO Q4-6HR Prescribed by: EBONY BARNARD on 06/01/19 115 Prednisone (Prednisone) 20 Mg Tab, 40 MG PO DAILY Prescribed by: EBONY BARNARD on 06/01/19 1154 Review of Systems Review of Systems Constitutional: No chills, No fever, No malaise, No weakness EENTM: No Double Vision, No Eye Pain Respiratory: Denies Cough, Denies Orthopnea Cardiovascular: Chest Pain Gastrointestinal: Denies Abdominal Pain, Denies Diarrhea, Denies Nausea, Denies Vomiting Genitourinary: Denies Burning, Denies Discharge Musculoskeletal: No back pain, No joint pain Skin: No change in color, No change in hair/nails All Other Systems Reviewed Negative Unless Noted: Yes Past Llbqkeb-Lqlyes-Bzpugf Hx Patient Social History Tobacco Use?: Yes Tobacco type used: Cigarettes Smoking Status: Current Everyday Smoker Substance use?: Yes Substance type: Marijuana Alcohol Use?: No Immunizations Up To Date Tetanus Booster (TDap): Unknown Past Medical History Surgery/Hospitalization HX: DOUBLE BYPASS, STENTS Surgeries: Yes (BYPASS, KNEE WAS CUT OPEN BY CHAINSAW-RAPAIRED) CABG Respiratory: No Cardiac: Yes Coronary Artery Disease, High Cholesterol, Hypertension Neurological: No Reproductive Disorders: No Genitourinary: No Gastrointestinal: No Musculoskeletal: No Endocrine: No HEENT: No Cancer: No Psychosocial: Yes Integumentary: No Blood Disorders: No Family Medical History No Pertinent Family Hx Physical Exam Vital Signs Vital Signs - First Documented 12/06/22 17:37 Temp 36.8 Pulse 71 Resp 13 B/P (MAP) 143/94 (110) Pulse Ox 96 O2 Delivery Room Air Capillary Refill : Less Than 3 Seconds Height, Weight, BMI Height: 5'10.00" Weight: 220lbs. oz. 99.773622es; 35.91 BMI Method:Stated General Appearance: No Apparent Distress, WD/WN HEENT: PERRL/EOMI, TMs Normal, Normal ENT Inspection, Pharynx Normal Neck: Full Range of Motion, Normal Inspection, Non Tender, Supple Respiratory: Chest Non Tender, Lungs Clear, Normal Breath Sounds, No Accessory Muscle Use, No Respiratory Distress Cardiovascular: Regular Rate, Rhythm, No Edema, No Gallop, No JVD Gastrointestinal: Normal Bowel Sounds, No Organomegaly, No Pulsatile Mass, Non Tender, Soft Extremity: Normal Capillary Refill, Normal Inspection, Normal Range of Motion, Non Tender Neurologic/Psychiatric: Alert, Oriented x3, No Motor/Sensory Deficits, 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, 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 as Tested Skin: Normal Color, Warm/Dry Progress/Results/Core Measures Results/Orders Lab Results Laboratory Tests Test 12/06/22 17:58 Range/Units White Blood Count 13.3 H 4.3-11.0 10^3/uL Red Blood Count 5.03 4.30-5.52 10^6/uL Hemoglobin 15.9 13.3-17.7 g/dL Hematocrit 46 40-54 % Mean Corpuscular Volume 92 80-99 fL Mean Corpuscular Hemoglobin 32 25-34 pg Mean Corpuscular Hemoglobin Concent 34 32-36 g/dL Red Cell Distribution Width 12.8 10.0-14.5 % Platelet Count 317 130-400 10^3/uL Mean Platelet Volume 11.4 9.0-12.2 fL Immature Granulocyte % (Auto) 1 % Neutrophils (%) (Auto) 55 42-75 % Lymphocytes (%) (Auto) 28 12-44 % Monocytes (%) (Auto) 9 0-12 % Eosinophils (%) (Auto) 7 0-10 % Basophils (%) (Auto) 1 0-10 % Neutrophils # (Auto) 7.4 1.8-7.8 10^3/uL Lymphocytes # (Auto) 3.7 1.0-4.0 10^3/uL Monocytes # (Auto) 1.1 H 0.0-1.0 10^3/uL Eosinophils # (Auto) 0.9 H 0.0-0.3 10^3/uL Basophils # (Auto) 0.1 0.0-0.1 10^3/uL Immature Granulocyte # (Auto) 0.1 0.0-0.1 10^3/uL Prothrombin Time 12.9 12.2-14.7 SEC INR Comment 0.9 0.8-1.4 Activated Partial Thromboplast Time 29 24-35 SEC Sodium Level 138 135-145 MMOL/L Potassium Level 4.2 3.6-5.0 MMOL/L Chloride Level 102 98-107 MMOL/L Carbon Dioxide Level 28 21-32 MMOL/L Anion Gap 8 5-14 MMOL/L Blood Urea Nitrogen 14 7-18 MG/DL Creatinine 1.00 0.60-1.30 MG/DL Estimat Glomerular Filtration Rate 90 BUN/Creatinine Ratio 14 Glucose Level 112 H 70-105 MG/DL Calcium Level 10.1 8.5-10.1 MG/DL Corrected Calcium 9.8 8.5-10.1 MG/DL Magnesium Level 2.0 1.6-2.4 MG/DL Total Bilirubin 0.4 0.1-1.0 MG/DL Aspartate Amino Transf (AST/SGOT) 24 5-34 U/L Alanine Aminotransferase (ALT/SGPT) 34 0-55 U/L Alkaline Phosphatase 74 40-136 U/L Myoglobin 131.0 H 10.0-92.0 NG/ML Troponin I 0.047 H <0.028 NG/ML B-Type Natriuretic Peptide 45.6 <100.0 PG/ML Total Protein 8.1 6.4-8.2 GM/DL Albumin 4.4 3.2-4.5 GM/DL Lipase 67 8-78 U/L My Orders Orders - CLARY HILTON PA Cbc With Automated Diff (12/06/22 17:55) Magnesium (12/06/22 17:55) Chest 1 View, Ap/Pa Only (12/06/22 17:55) Ekg Tracing (12/06/22 17:55) Comprehensive Metabolic Panel (12/06/22 17:55) Myoglobin Serum (12/06/22 17:55) Protime With Inr (12/06/22 17:55) Partial Thromboplastin Time (12/06/22 17:55) Monitor-Rhythm Ecg Trace Only (12/06/22 17:55) Lipid Panel (12/07/22 06:00) Ed Iv/Invasive Line Start (12/06/22 17:55) Lipase (12/06/22 17:55) Bnp Armstrong (12/06/22 17:55) Troponin I Melchor (12/06/22 17:55) Aspirin Chewable Tablet (Baby Aspirin Ch (12/06/22 18:00) Enoxaparin Injection (Lovenox Injection) (12/06/22 19:00) Ed Admission (Communication) (12/06/22 18:52) Medications Given in ED Current Medications Medications Dose Ordered Sig/Jordan Route Start Time Stop Time Status Last Admin Dose Admin Aspirin 324 mg ONCE ONCE PO 12/06/22 18:00 12/06/22 18:01 DC 12/06/22 18:03 324 MG Vital Signs/I&O 12/06/22 17:37 Temp 36.8 Pulse 71 Resp 13 B/P (MAP) 143/94 (110) Pulse Ox 96 O2 Delivery Room Air Blood Pressure Mean: 110 Comment Sinus rhythm, T wave abnormality in the lateral leads, 66 bpm, QRS duration at 108 MS, QTc 417 MS Departure Communication (PCP) Reviewed previous ER visits, H&P, testing. Had a cardiac catheterization by Dr. Chan Orourke with a cardiac stent placed. Ejection fraction 50%. Patient has been out of his nitro for the past 2 days. Intermittent chest pain with exertion with shortness of breath relieved when he sits down. EKG on arrival showed T wave inversions in the lateral lead. Currently chest pain-free. Due to current presentation cardiac work-up was initiated. Differential diagnosis of ACS, CHF, PE, pneumonia. Denies of any specific cough, headache, dizziness, vomiting or diarrhea. Patient vital signs stable. CBC showed white blood count of 13. Troponin 0.047 with normal BNP. Chemistry otherwise unremarkable. He does take Plavix daily. Patient was given a full aspirin here. Chest x-ray showed some mild cardiomegaly. Discussed patient with Dr. Caruso imaging technologist. Recommends 1 shot of Lovenox 1 mg/kg, n.p.o. after midnight, cardiac diet until then and full aspirin. Patient is on metoprolol and simvastatin. Patient was discussed with Dr. Chaudhry hospitalist who accepts patient for cardiac work-up. Impression Primary Impression: Acute non-ST elevation myocardial infarction (NSTEMI) Disposition: ADMITTED INPATIENT Condition: Stable Admissions Decision to Admit Reason: Admit from ER (General) Decision to Admit/Date: Dec 06, 2022 Time/Decision to Admit Time: 18:51 Departure-Patient Inst. Referrals: [facility] (PCP/Family) Primary Care Physician CLARY HILTON Dec 06, 2022 17:54
[2022-12-06] MEDS ORDERED: ASPIRIN 81 MG CHEW (CHILDREN'S ASA) PO ONE (18:00)
[2022-12-06 18:01] LABS: BASOPHILS # (AUTO) 0.1 10^3/uL (0.0-0.1); BASOPHILS % (AUTO) 1 % (0-10); EOSINOPHILS # (AUTO) 0.9 10^3/uL (0.0-0.3); EOSINOPHILS % (AUTO) 7 % (0-10); HEMATOCRIT 46 % (40-54); HEMOGLOBIN 15.9 g/dL (13.3-17.7); LYMPHOCYTES # (AUTO) 3.7 10^3/uL (1.0-4.0); LYMPHOCYTES % (AUTO) 28 % (12-44); MEAN CORPUSCULAR HEMOGLOBIN 32 pg (25-34); MEAN CORPUSCULAR HGB CONC 34 g/dL (32-36); MEAN CORPUSCULAR VOLUME 92 fL (80-99); MEAN PLATELET VOLUME 11.4 fL (9.0-12.2); MONOCYTES # (AUTO) 1.1 10^3/uL (0.0-1.0); MONOCYTES % (AUTO) 9 % (0-12); NEUTROPHILS # (AUTO) 7.4 10^3/uL (1.8-7.8); NEUTROPHILS % (AUTO) 55 % (42-75); PLATELET COUNT 317 10^3/uL (130-400); WHITE BLOOD COUNT 13.3 10^3/uL (4.3-11.0)
[2022-12-06 18:06] LABS: ALBUMIN 4.4 GM/DL (3.2-4.5); POTASSIUM 4.2 MMOL/L (3.6-5.0)
[2022-12-06 18:07] LABS: CALCIUM 10.1 MG/DL (8.5-10.1)
[2022-12-06 18:08] LABS: INR 0.9 (0.8-1.4); PROTHROMBIN TIME PATIENT 12.9 SEC (12.2-14.7)
[2022-12-06 18:09] LABS: TOTAL PROTEIN 8.1 GM/DL (6.4-8.2)
[2022-12-06 18:11] LABS: BILIRUBIN,TOTAL 0.4 MG/DL (0.1-1.0)
--- NOTE | 2022-12-06 18:33 | Diagnostic Imaging Report ---
INDICATION: Chest pain for one month. COMPARISONS: 06/17/2020 FINDINGS: Single chest shows borderline cardiomegaly with mild central venous congestion. Few scattered atelectatic infiltrates are seen but no consolidations. There is no effusion or pneumothorax. There appears to be a central lung nodule possibly node versus granuloma. Soft tissues and bony thorax unremarkable. IMPRESSION: 1. Mild congestive heart failure, accentuated by the portable technique, and underpenetrated film. 2. Previous median sternotomy for CABG. 3. There is questionable left hilar soft tissue density which may represent node versus a nodule. Departmental PA and lateral films of the chest would be of further value. Dictated by: Dictated on workstation # [id number]
[2022-12-06] MEDS ORDERED: ENOXAPARIN 100 MG/1 ML (LOVENOX) SYR SC ONE (19:00)
[2022-12-06] MEDS ORDERED: cloNIDine 0.1 MG (CATAPRES) TAB PO PRN (20:00)
[2022-12-06] MEDS ORDERED: HYDROmorphone 2 MG/ML VIAL (DILAUDID) IV PRN (20:00)
[2022-12-06] MEDS ORDERED: LACTULOSE SYRUP 10GM/15ML (ENULOSE) 30ML UDC PO PRN (20:00)
[2022-12-06] MEDS ORDERED: diphenhydrAMINE 50 MG/ML INJ (BENADRYL) IVP PRN (20:00)
[2022-12-06] MEDS ORDERED: CALCIUM CARBONATE 500 MG (TUMS) TAB.CHEW PO PRN (20:00)
[2022-12-06] MEDS ORDERED: MILK OF MAGNESIA 400 MG/5 ML 30 ML UDC PO PRN (20:00)
[2022-12-06] MEDS ORDERED: NS IV 1000 ML 1,000 ML IV SCH (20:00)
[2022-12-06] MEDS ORDERED: diphenhydrAMINE 25 MG TAB (BENADRYL) PO PRN (20:00)
[2022-12-06] MEDS ORDERED: ANTACID SUSP 30 ML UDC (MYLANTA) PO PRN (20:00)
[2022-12-06] MEDS ORDERED: polyethylene glycoL POWDER 17 GM (MIRALAX) PACK PO PRN (20:00)
[2022-12-06] MEDS ORDERED: ONDANSETRON 4 MG/2 ML (SDV) Z0FRAN IV PRN (20:00)
[2022-12-06] MEDS ORDERED: ONDANSETRON 4 MG (ZOFRAN) ORAL DISSOLVE TAB PO PRN (20:00)
[2022-12-06] MEDS ORDERED: ALPRAZolam 0.5 MG (XANAX) TAB PO PRN (20:00)
[2022-12-06] MEDS ORDERED: BISACODYL 10 MG SUPP (DULCOLAX) PR PRN (20:00)
[2022-12-06] MEDS ORDERED: MELATONIN 3 MG TABLET PO PRN (20:00)
[2022-12-06] MEDS ORDERED: ACETAMINOPHEN 325 MG TABLET PO PRN (20:00)
[2022-12-06 20:06] VITALS: BP 127/65
[2022-12-06] MEDS: DOCUSATE SODIUM 100 MG (COLACE) CAP PO SCH (21:39)
[2022-12-06] MEDS: SENNOSIDES 8.6 MG (SENOKOT) TAB PO SCH (21:40)
[2022-12-06 23:40] VITALS: BP 126/70
[2022-12-07 04:00] VITALS: BP 113/63
[2022-12-07 05:56] LABS: BASOPHILS # (AUTO) 0.1 10^3/uL (0.0-0.1); BASOPHILS % (AUTO) 1 % (0-10); EOSINOPHILS % (AUTO) 9 % (0-10); HEMATOCRIT 46 % (40-54); HEMOGLOBIN 15.7 g/dL (13.3-17.7); LYMPHOCYTES # (AUTO) 3.9 10^3/uL (1.0-4.0); LYMPHOCYTES % (AUTO) 35 % (12-44); MEAN CORPUSCULAR HEMOGLOBIN 32 pg (25-34); MEAN CORPUSCULAR HGB CONC 34 g/dL (32-36); MEAN CORPUSCULAR VOLUME 93 fL (80-99); MEAN PLATELET VOLUME 11.9 fL (9.0-12.2); MONOCYTES # (AUTO) 0.8 10^3/uL (0.0-1.0); MONOCYTES % (AUTO) 7 % (0-12); NEUTROPHILS # (AUTO) 5.3 10^3/uL (1.8-7.8); NEUTROPHILS % (AUTO) 48 % (42-75); PLATELET COUNT 309 10^3/uL (130-400); WHITE BLOOD COUNT 11.1 10^3/uL (4.3-11.0)
[2022-12-07 06:14] LABS: ALBUMIN 3.9 GM/DL (3.2-4.5); BILIRUBIN,TOTAL 0.5 MG/DL (0.1-1.0); CALCIUM 9.7 MG/DL (8.5-10.1); CREATININE SERUM 0.94 MG/DL (0.60-1.30); POTASSIUM 4.6 MMOL/L (3.6-5.0); TOTAL PROTEIN 7.3 GM/DL (6.4-8.2)
--- NOTE | 2022-12-07 06:21 | Short Stay Summary-Hospitalist ---
History of Present Illness HPI/Chief Complaint CC: Chest pain HPI: This is a 52yoWM clinic patient of [facility] who has a h/o CAD stents who came to ER with CP. Protocol meds initiated by Dr Caruso. Still smoking. Cath performed revealing multivessel disease in need of transfer to [place] for high risk cath or CABG. Source: patient Exam Limitations: no limitations Date Seen 12/07/22 Time Seen by a Provider: 11:00 Attending Physician [place] PCP Admitting Physician: Mikala Chaudhry DO Attending Physician: Mikala Chaudhry DO Referring Physician Date of Admission Dec 06, 2022 at 19:42 Home Medications & Allergies Home Medications Reviewed patient Home Medication Reconciliation performed by pharmacy medication reconciliations crystal growing technician and/or nursing. Patients Allergies have been reviewed. Allergies Allergies Coded Allergies No Known Drug Allergies (Verified03/23/08) Past Yxpvapk-Ooeukz-Cnpzhk Hx Patient Social History Marrital Status: Tobacco Use?: Yes Tobacco type used: Cigarettes Smoking Status: Current Everyday Smoker Use of E-Cig and/or Vaping dev: No Substance use?: Yes Substance type: Marijuana Alcohol Use?: No Pt feels they are or have been: No Immunizations Up To Date Tetanus Booster (TDap): Unknown Current Status Advance Directives: No Communicates: Verbally Primary Language: Vietnamese Preferred Spoken Language: Vietnamese Implanted or Applied Medical D: Stents Past Medical History Surgeries: CABG Coronary Artery Disease, High Cholesterol, Hypertension Blood Disorders: No Family Medical History No Pertinent Family Hx Review of Systems Constitutional: see HPI Cardiovascular: chest pain Physical Exam Physical Exam Vital Signs Vital Signs - First Documented 12/06/22 17:37 Temp 36.8 Pulse 71 Resp 13 B/P (MAP) 143/94 (110) Pulse Ox 96 O2 Delivery Room Air Capillary Refill : Less Than 3 Seconds Height, Weight, BMI Height: 5'10.00" Weight: 220lbs. oz. 99.932472rw; 38.11 BMI Method:Stated General Appearance: No Apparent Distress, WD/WN HEENT: PERRL/EOMI, TMs Normal, Normal ENT Inspection, Pharynx Normal Neck: Full Range of Motion, Normal Inspection, Non Tender, Supple Respiratory: Chest Non Tender, Lungs Clear, Normal Breath Sounds, No Accessory Muscle Use, No Respiratory Distress Cardiovascular: Regular Rate, Rhythm, No Edema, No Gallop, No JVD Gastrointestinal: Normal Bowel Sounds, No Organomegaly, No Pulsatile Mass, Non Tender, Soft Extremity: Normal Capillary Refill, Normal Inspection, Normal Range of Motion, Non Tender Neurologic/Psychiatric: Alert, Oriented x3, No Motor/Sensory Deficits, 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 Short Stay Diagnosis Discharge Diagnosis-Short Stay Admission Diagnosis Angina Smoker CAD previous stents Final Discharge Diagnosis Angina in need of high risk cath procedure vs. CABG Smoker CAD previous stents Conclusion Plan Transfer to [place] Clinical Quality Measures AMI/AHF: ASA po Prior to arrival: No DVT/VTE Risk/Contraindication: Contraindications-Pharm: Other *list below* Other: cath tomorrow MIKALA CHAUDHRY DO Dec 07, 2022 06:21
[2022-12-07] MEDS: DOCUSATE SODIUM 100 MG (COLACE) CAP PO SCH (07:55)
[2022-12-07] MEDS: SENNOSIDES 8.6 MG (SENOKOT) TAB PO SCH (07:56)
[2022-12-07 08:10] VITALS: BP 111/67
--- NOTE | 2022-12-07 08:50 | Consultation-Cardiology ---
HPI-Cardiology Cardiology Consultation Date of Consultation 12/07/22 Date of Admission Time Seen by Provider: 08:47 Indication: Chest pain HPI 52-year-old gentleman with history of coronary artery disease, history of CABG and stenting. Patient was seen by Dr. Forrest in 2019, did not have any follow- up. Has been following with his primary care physician noncompliant with his med ication, started to have chest pain, dull in nature in the retrosternal area radiating to the jaw, EKG showed T wave inversion, had mild elevation in troponin. On my evaluation he was feeling better, reporting chest pain with exertion which has been worsening recently, reporting that he is having chest pain with any activity. Feeling better at rest. Home Medications & Allergies Allergies: Coded Allergies: No Known Drug Allergies (Verified , 03/23/08) Home Medication List Reviewed: Yes RMY-Pghnsx-Gjosgu Hx Patient Social History Marital Status: Employed/Student: unemployed Drug of Choice: THC, METH Smoking Status: Current Everyday Smoker Type Used: Cigars, Cigarettes Recent Hopitalizations: No Have you traveled recently?: No Alcohol Use?: No Substance type: Marijuana Immunizations Up To Date Tetanus Booster (TDap): Unknown Past Medical History Discussed below Family Medical History Significant Family History: No Pertinent Family Hx Review of Systems-General Review of Systems Constitutional: No chills, No fever, No malaise, No weakness EENTM: see HPI, no symptoms reported Respiratory: no symptoms reported, see HPI, dyspnea on exertion Cardiovascular: see HPI, chest pain; No edema, No Hx of Intervention, No palpitations, No syncope, No vascular heart diseas, No other Gastrointestinal: no symptoms reported, see HPI Genitourinary: no symptoms reported, see HPI Musculoskeletal: No back pain, No joint pain Skin: No change in color, No change in hair/nails Psychiatric/Neurological: No Symptoms Reported, See HPI All Other Systems Reviewed Negative Unless Noted: Yes Reviewed Test Results Reviewed Test Results Lab Laboratory Tests Test 12/06/22 17:58 12/07/22 05:10 Range/Units White Blood Count 13.3 H 11.1 H 4.3-11.0 10^3/uL Red Blood Count 5.03 4.98 4.30-5.52 10^6/uL Hemoglobin 15.9 15.7 13.3-17.7 g/dL Hematocrit 46 46 40-54 % Mean Corpuscular Volume 92 93 80-99 fL Mean Corpuscular Hemoglobin 32 32 25-34 pg Mean Corpuscular Hemoglobin Concent 34 34 32-36 g/dL Red Cell Distribution Width 12.8 12.8 10.0-14.5 % Platelet Count 317 309 130-400 10^3/uL Mean Platelet Volume 11.4 11.9 9.0-12.2 fL Immature Granulocyte % (Auto) 1 1 % Neutrophils (%) (Auto) 55 48 42-75 % Lymphocytes (%) (Auto) 28 35 12-44 % Monocytes (%) (Auto) 9 7 0-12 % Eosinophils (%) (Auto) 7 9 0-10 % Basophils (%) (Auto) 1 1 0-10 % Neutrophils # (Auto) 7.4 5.3 1.8-7.8 10^3/uL Lymphocytes # (Auto) 3.7 3.9 1.0-4.0 10^3/uL Monocytes # (Auto) 1.1 H 0.8 0.0-1.0 10^3/uL Eosinophils # (Auto) 0.9 H 1.0 H 0.0-0.3 10^3/uL Basophils # (Auto) 0.1 0.1 0.0-0.1 10^3/uL Immature Granulocyte # (Auto) 0.1 0.1 0.0-0.1 10^3/uL Prothrombin Time 12.9 12.2-14.7 SEC INR Comment 0.9 0.8-1.4 Activated Partial Thromboplast Time 29 24-35 SEC Sodium Level 138 140 135-145 MMOL/L Potassium Level 4.2 4.6 3.6-5.0 MMOL/L Chloride Level 102 103 98-107 MMOL/L Carbon Dioxide Level 28 26 21-32 MMOL/L Anion Gap 8 11 5-14 MMOL/L Blood Urea Nitrogen 14 15 7-18 MG/DL Creatinine 1.00 0.94 0.60-1.30 MG/DL Estimat Glomerular Filtration Rate 90 97 BUN/Creatinine Ratio 14 16 Glucose Level 112 H 98 70-105 MG/DL Calcium Level 10.1 9.7 8.5-10.1 MG/DL Corrected Calcium 9.8 9.8 8.5-10.1 MG/DL Magnesium Level 2.0 1.6-2.4 MG/DL Total Bilirubin 0.4 0.5 0.1-1.0 MG/DL Aspartate Amino Transf (AST/SGOT) 24 24 5-34 U/L Alanine Aminotransferase (ALT/SGPT) 34 30 0-55 U/L Alkaline Phosphatase 74 69 40-136 U/L Myoglobin 131.0 H 10.0-92.0 NG/ML Troponin I 0.047 H 0.059 H <0.028 NG/ML B-Type Natriuretic Peptide 45.6 <100.0 PG/ML Total Protein 8.1 7.3 6.4-8.2 GM/DL Albumin 4.4 3.9 3.2-4.5 GM/DL Lipase 67 8-78 U/L Triglycerides Level 236 H <150 MG/DL Cholesterol Level 215 H < 200 MG/DL LDL Cholesterol Direct 160 H 1-129 MG/DL VLDL Cholesterol 47 H 5-40 MG/DL HDL Cholesterol 30 L 40-60 MG/DL Physical Exam Physical Exam Vital Signs Vital Signs - First Documented 12/06/22 17:37 Temp 36.8 Pulse 71 Resp 13 B/P (MAP) 143/94 (110) Pulse Ox 96 O2 Delivery Room Air Capillary Refill : Less Than 3 Seconds Height, Weight, BMI Height: 5'10.00" Weight: 220lbs. oz. 99.081960he; 38.11 BMI Method:Stated General Appearance: No Apparent Distress, WD/WN Eyes: Bilateral Eye Normal Inspection, Bilateral Eye PERRL, Bilateral Eye EOMI HEENT: PERRL/EOMI, TMs Normal, Normal ENT Inspection, Pharynx Normal Neck: Full Range of Motion, Normal Inspection, Non Tender, Supple Respiratory: Chest Non Tender, Lungs Clear, Normal Breath Sounds, No Accessory Muscle Use, No Respiratory Distress Cardiovascular: Regular Rate, Rhythm, No Edema, No Gallop, No JVD Gastrointestinal: Normal Bowel Sounds, No Organomegaly, No Pulsatile Mass, Non Tender, Soft Back: Normal Inspection, No CVA Tenderness, No Vertebral Tenderness Extremity: Normal Capillary Refill, Normal Inspection, Normal Range of Motion, Non Tender Neurologic/Psychiatric: Alert, Oriented x3, No Motor/Sensory Deficits, 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, slubber hand II-XII Norm as Tested Skin: Normal Color, Warm/Dry Lymphatic: No Adenopathy A/P-Cardiology Admission Diagnosis Chest pain Non-ST elevation myocardial infarction Coronary artery disease Hypertension Hyperlipidemia Assessment/Plan Chest pain, unstable angina, accelerating angina Non-ST elevation myocardial infarction. Extensive cardiac history, discussed the management plan recommended cardiac catheterization possible PTCA Coronary artery disease, history of CABG, last cardiac catheterization done in June [address] Giles Had occluded left main coronary artery, patent MARIN to the LAD, patent vein graft to the obtuse marginal branch, had 90% proximal right coronary artery stenosis, had Montse 2.5 x 18 mm stent. Ejection fraction was normal Having elevation in troponin, we will proceed with cardiac catheterization possible PTCA Hypertension, restart home medication monitor blood pressure Hyperlipidemia, LDL 160, will start Lipitor 80 mg daily Tobaccoism, still an active smoker, educated on smoking cessation. Clinical Quality Measures AMI/AHF: ASA po Prior to arrival: No DVT/VTE Risk/Contraindication: Contraindications-Pharm: Other *list below* Other: cath tomorrow KVNG RAYMOND MD Dec 07, 2022 08:50
--- NOTE | 2022-12-07 08:51 | Cardiac Procedure Note-CS/ASA ---
Pre-Procedure Note Pre-Op Procedure Note Date of Available H&P: Dec 07, 2022 Date H&P Reviewed: Dec 07, 2022 Time H&P Reviewed: 08:51 History & Physical: H&P Reviewed, Patient Examed, No changes noted Pre-Operative Diagnosis: NSTMI Moderate Sedation PreProcedure Time 08:51 ASA Score 3 Airway Lungs Heart ASA score ASA 1: a normal healthy patient ASA 2: a patient with a mild systemic disease (mid diabetes, controlled hypertension, obesity ASA 3: a patient with a severe systemic disease that limits activity (angina, COPD, prior Myocardial infarction) ASA 4: a patient with an incapacitating disease that is a constant threat to life (CHF, renal failure) ASA 5: a moribund patient not expected to survive 24 hrs. (ruptured aneurysm) ASA 6: a declared brain- patient whose organs are being harvested. For emergent operations, add the letter E after the classification Mallampati Classification Grade 3 Sedation Plan Analgesia, Amnesia, Plan communicated to team members, Discussed options with patient/fam, Discussed risks with patient/fam The patient is an appropriate candidate to undergo the planned procedure, sedation, and anesthesia. The patient immediately re-assessed prior to indication. KVNG RAYMOND MD Dec 07, 2022 08:51
[2022-12-07] MEDS ORDERED: ASPIRIN 325 MG (5 GR) TABLET PO SCH (09:00)
[2022-12-07] MEDS ORDERED: NS IV 1000 ML 1,000 ML ONE (09:03)
[2022-12-07] MEDS ORDERED: HEParin (CATH LAB) 2,000 ML IV ONE (09:03)
[2022-12-07] MEDS ORDERED: LIDOCAINE 1% INJ 20 ML VIAL ONE (09:03)
[2022-12-07] MEDS ORDERED: fentaNYL INJ 100 MCG/2 ML AMP ONE ×2 (09:07→11:48)
[2022-12-07] MEDS ORDERED: MIDAZOLAM 5 MG/5 ML (VERSED) VIAL ONE (09:07)
[2022-12-07] MEDS ORDERED: NITRO DRIP 25000 MCG/D5W 0 ML IV ONE (10:03)
[2022-12-07] MEDS ORDERED: HEParin 1000 UNIT/ML (10ML VIAL) FOR BOLUS ONE (10:03)
[2022-12-07] MEDS ORDERED: EPTIFIBATIDE BOLUS 30 ML IV ONE (10:06)
--- NOTE | 2022-12-07 11:11 | Cardiac Cath Report ---
Cardiac Cath Report Physician (s)/Police Clerk (s) Physician KVNG RAYMOND MD Pre-Procedure Diagnosis Pre-Procedure Diagnosis: NSTMI Post-Procedure Note Procedure Start Date: Dec 07, 2022 Name of Procedure: Left heart catheterization Vein graft angiogram MARIN angiogram Angioplasty to the right coronary artery Findings/Procedure Note PROCEDURE NOTE: 52-year-old gentleman with extensive coronary artery disease, hypertension hyperlipidemia, history of CABG, stenting in the past. Admitted with non-ST elevation myocardial infarction, cardiac catheterization was recommended After explaining the procedure to the patient, all pros and cons were explained, all questions were answered. The patient signed the consent and then he was placed on the cardiac catheterization laboratory. Groin was prepped SL fashion local anesthesia was used. Sheath placed in the artery. Freda right and left catheter were used to access the coronary system.Vein Graft evaluated. MARIN evaluated. Freda right was prolapsed to the left ventricular cavity, pressure was measured, pullback LV to aorta was done. Patient has severe multivessel coronary artery disease First intervention Total occlusion of the mid right coronary artery with severe stenosis in the proximal right coronary artery Freda right with sidehole guide was used, whisper extra-support wire was advanced. I was unable to cross the total occlusion. I advanced a 2.5 x 20 mm balloon to use it as backup to support the wire and did multiple attempt to cross the total occlusion without success. The lesion in the proximal right coronary artery I deployed the balloon up to 14 tiana with multiple inflation. Showed subtle improvement overall there is no significant improvement I attempted to advance noncompliant balloon and last the position of the wire and the guide I decided to abort at this point. Second intervention Vein graft to the obtuse marginal branch has heavy calcification with 2 area of 95% stenosis with slow flow in the vein graft. I used Freda right without success then used LCB guide and reshaped the guide and I was able to engage the vein graft but was unable to advance any wire through the midportion, there was not enough support with the position of the guide. I was concerned about complication. I aborted the procedure. At the end of the procedure the sheath was removed. Closure device was deployed FINDINGS: Hemodynamics LV 123/6, end-diastolic pressure of 6 Aorta 131/80 mean of 89 ANATOMY: Left Main is subtotally occluded proximally Left Anterior Descending has total occlusion proximally the MARIN to the LAD is patent with good flow distally Left Circumflex has a total occlusion proximally, the vein graft to the circumflex artery has heavy calcification with 2 areas of 95% stenosis, failed attempt for intervention Right Coronary Artery is occluded at the midportion the proximal portion has a stent with 95% stenosis, balloon angioplasty to the proximal portion without change in the lesion and continue to have total occlusion distally MARIN to LAD is patent with good flow distally Vein Graft to the obtuse marginal branch has 2 area of 95% stenosis proximal and distal with slow flow in the vein graft. Failed attempt for intervention on the vein graft, the lesion continue to be the same postintervention LV Gram was not done, pressure was measured Nonselective angiogram to the subclavian artery showed aneurysm in the proximal segment First intervention Right coronary artery Dominant artery Preintervention 100% stenosis, post intervention 100% stenosis with no flow distally Second intervention Vein graft to the circumflex artery Preintervention 95% stenosis proximal and 95% stenosis distal with JESSA II flow Post intervention the same, did not change CONCLUSION: Occluded proximal left main coronary artery with patent MARIN to LAD, severe stenosis in the vein graft to the circumflex artery with 2 lesions that need to be intervened at a tertiary care center Total occlusion of a dominant right coronary artery at the midportion with failed attempt for intervention 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
[2022-12-07] MEDS ORDERED: PATIENT MAY USE OWN MEDS, ALL PO SCH (11:15)
[2022-12-07] MEDS ORDERED: NS IV 1000 ML 1,000 ML IV SCH (11:15)
[2022-12-07] MEDS ORDERED: SIMV40TA25 PO (15:15)
[2022-12-07] MEDS ORDERED: IBUP-2473 PO (15:15)
[2022-12-07] MEDS ORDERED: CLOP-31 PO (15:15)
[2022-12-07] MEDS ORDERED: ASPI325T32 PO (15:15)
[2022-12-07] MEDS ORDERED: MTP100TCR PO (15:15)
== END 2022-12-07 16:00 | disposition other institution (70) ==
LOC: EDUNIT# 17:33 → ER 17:35 → UNDOADMOB 19:42 → 4TH 19:42 → CSD 12-07 11:26 → UNDODISOB 12-07 16:00
PROVIDERS: ADMIT Internal Medicine; ATTEND Internal Medicine
DX: I25.110 Atherosclerotic heart disease of native coronary artery with unstable angina pectoris (principal); I21.4 Non-ST elevation (NSTEMI) myocardial infarction; I72.8 Aneurysm of other specified arteries; E78.5 Hyperlipidemia, unspecified; I10 Essential (primary) hypertension; F17.210 Nicotine dependence, cigarettes, uncomplicated; Z95.1 Presence of aortocoronary bypass graft; Z79.899 Other long term (current) drug therapy
CPT/HCPCS: 71045; 80053 ×2; 80061; 83690; 83735; 83874; 83880; 84484 ×2; 85025 ×2; 85610; 85730; 92920; 93005; 93041; 93459; 99284; C1725 ×2; C1760; C1769 ×3; C1887 ×2; C1894; C8929; 36415; 93306; G0378